=== PATIENT | female | born 1995 | race Caucasian/White ===

== ENCOUNTER 2022-04-15 06:50 | Emergency (ER) | payer BC, OTHER ==
[~2022-04-15] VITALS: Ht 162.6 cm; Wt 100.0 kg
[2022-04-15 07:15] VITALS: BP 134/76
[2022-04-15] MEDS ORDERED: IBUP800T26 PO (10:03)
== END 2022-04-15 10:13 | disposition home or self-care (01) ==
LOC: ER 06:50
DX: S93.401A Sprain of unspecified ligament of right ankle, initial encounter (principal); X50.1XXA Overexertion from prolonged static or awkward postures, initial encounter; Y93.89 Activity, other specified; Y92.89 Other specified places as the place of occurrence of the external cause; Y99.8 Other external cause status
CPT/HCPCS: 73610

== ENCOUNTER 2023-08-06 06:52 | Emergency (ER) | payer BC ==
[~2023-08-06] VITALS: Ht 162.6 cm; Wt 100.0 kg
[~2023-08-06 06:52] MED LIST: IBUP-1455 PO
[2023-08-06 07:36] VITALS: BP 145/95; PULSE 95; RESP 18; TEMP 97.5; O2SAT 97
[2023-08-06] MEDS: cefTRIAXone SOD 1,000 MG VL IM ONE (07:50)
[2023-08-06] MEDS: LIDOCAINE VISCOUS 2% 15ML UD MT ONE (07:51)
[2023-08-06] MEDS ORDERED: LIDO2SOL26 MT (08:00)
[2023-08-06] MEDS ORDERED: AMOX875T3 PO (08:00)
== END 2023-08-06 08:00 | disposition home or self-care (01) ==
LOC: ER 06:52
DX: J03.90 Acute tonsillitis, unspecified (principal)
CPT/HCPCS: 96372; 99283; J0696